=== PATIENT | female | born 1965 | race Caucasian/White ===

== ENCOUNTER 2017-04-30 09:45 | Day surgery (SDC) | payer BC ==
[~2017-04-30] VITALS: Ht 162.6 cm; Wt 76.1 kg
[2017-04-30] MEDS ORDERED: IBUPROFEN (11:12)
[2017-04-30] MEDS ORDERED: NEXIUM (11:12)
[2017-04-30] MEDS ORDERED: VITAMIN D (11:12)
[2017-04-30 11:30] VITALS: BP 121/61; PULSE 82; RESP 18
--- NOTE | 2017-04-30 12:04 | OPPN ---
Date/Time of Note Date/Time of Note DATE: 04/30/17 TIME: 12:03 Proc Note GI Procedure Date 04/30/17 Indication: screening/surveillance, diagnostic Pre-procedure Diagnosis Dysphagia Screening colonoscopy Post-procedure Diagnosis 1. Severe reflux esophagitis with a ring formation 2. Eosinophilic esophagitis 3. Gastritis : Colonoscopy completely normal External hemorrhoids Procedure Performed: Endoscopy, Colonoscopy Surgeon see signature line Building Performance Consultant none Anesthesia Type: moderate sedation Tourniquet Time none EBL none Transfusion required none Biopsy 1: Stomach biopsies 3 Grafts/Implants none Tubes/Drains none Complication(s) none Disposition: PACU Procedure Description Report dictated IRIS BARRETT MD Apr 30, 2017 12:04
[2017-04-30] MEDS ORDERED: MIDAZOLAM 1 MG/ML 2 ML INJ ONE ×4 (12:16→12:17)
[2017-04-30] MEDS ORDERED: FENTAnyl 50 MCG/ML VIAL ONE (12:16)
[2017-04-30 12:45] VITALS: BP 112/62; RESP 20
--- NOTE | 2017-04-30 14:01 | GILP ---
DATE OF PROCEDURE: PROCEDURE: EGD with biopsy and colonoscopy. INDICATION: A 52-year-old female undergoing this procedure for dysphagia and colon cancer screening . The risks of the procedure, related and unrelated complications, sedative risks, alternatives dis cussed and informed consent was obtained. DESCRIPTION OF PROCEDURE: The patient was sedated with Versed 6.5 mg, fentanyl 100 mg. After optima l sedation, scope was passed with much ease into esophagus. The patient had a multiple ring-like st ricture in the distal part of the esophagus with ulceration and also inflammatory polyp near the GE junction consistent with the diagnosis of severe esophagitis, most probably eosinophilic. Stomach m ucosa revealed gastritis. Multiple biopsies obtained to rule out H. pylori infection. Duodenum, fi rst and second part was within normal limits. Retroversion was normal. Scope was straightene d out. Brushing was done at the GE junction site with an inflammatory polyp. The brush was sent fo r cytological analysis. The mucosa was friable. Scope was then removed with good patient tolerance . IMPRESSION 1. Esophageal ulceration in the distal part of the esophagus with a ring-like structure. 2. Inflammatory polyp near the GE junction. Brushing was done. 3. Multiple ring-like structures were seen in the distal part of the esophagus, 15-20 in number, co nsistent with the diagnosis of eosinophilic esophagitis. 4. Gastritis. 5. Normal duodenum and ampulla. PLAN: To review histopathology. The patient is to stay on a proton pump inhibitor. In the beginnin g 40 mg twice a day, then we will drop it down to once a day. We will review the histopathology and cytology. COLONOSCOPY REPORT The patient was turned around. Digital examination was done which was normal. Scope was passed wit h much ease into rectum, advanced through sigmoid, descending, transverse colon all the way into cec um and finally into terminal ileum. While coming out, mucosa thoroughly inspected. The rest of the colon was normal. Retroversion done. Scope was straightened out. On antegrade examination hemorr hoids identified. IMPRESSION: 1. Normal findings all the way into cecum. 2. Normal terminal ileum. 3. Clarity and cleanliness was good. 4. Normal retroversion. 5. External hemorrhoids. PLAN: Stay on a high fiber diet. Next colonoscopy after 10 years. Dictated By: IRIS ARREDONDO/YESSICA Conf#: [id number] DID#: [id number] CC: BERENICE KHAN MD;*[facility]*
== END 2017-04-30 19:12 | disposition home or self-care (01) ==
LOC: GIL 09:45
PROVIDERS: ATTEND Internal Medicine Gastroenterology
DX: Z12.11 Encounter for screening for malignant neoplasm of colon (principal); K29.50 Unspecified chronic gastritis without bleeding; K22.10 Ulcer of esophagus without bleeding; K20.0 Eosinophilic esophagitis; K64.4 Residual hemorrhoidal skin tags
CPT/HCPCS: 43239; 88305; 88312; J2250; J3010; Z7610

== ENCOUNTER 2017-12-01 10:51 | Day surgery (SDC) | END 2017-12-01 15:39 | disposition home or self-care (01) ==

== ENCOUNTER 2018-12-09 07:22 | Day surgery (SDC) | payer BC ==
[~2018-12-09] VITALS: Ht 160 cm; Wt 76.2 kg
[2018-12-09] VITALS (22 sets, daily range): BP systolic 93–113; BP diastolic 56–73; PULSE 66–83; RESP 13–43; Ht 160 cm; Wt 76.2 kg
[~2018-12-09 07:22] MED LIST: OMEPRAZOLE
[2018-12-09] MEDS ORDERED: SOD CHLORIDE 0.45% 1,000 ML IV ONE (09:00)
[2018-12-09] MEDS ORDERED: FAMOTIDINE 20 MG TAB PO ONE (09:00)
[2018-12-09] MEDS ORDERED: DIAZEPAM 5 MG TAB PO ONE (09:00)
[2018-12-09] MEDS ORDERED: DIPHENHYDRAMINE 50 MG CAP PO ONE (09:00)
[2018-12-09] MEDS ORDERED: ATOR10TA65 PO (09:05)
[2018-12-09] MEDS ORDERED: ASPI81TA52 PO (09:05)
[2018-12-09] MEDS ORDERED: OMEP20CA16 PO (09:05)
[2018-12-09] MEDS ORDERED: NITR0.4T39 SL (09:06)
[2018-12-09] MEDS ORDERED: CALC1TAB79 PO (09:06)
[2018-12-09] MEDS ORDERED: HEPARIN 1000 UNITS/ML 10 ML INJ ONE (09:28)
[2018-12-09] MEDS ORDERED: HEPARIN 1000 UNITS/NS (A-LINE) 1,000 ML ONE (09:28)
[2018-12-09] MEDS ORDERED: FENTAnyl 50 MCG/ML VIAL ONE (09:28)
[2018-12-09] MEDS ORDERED: MIDAZOLAM 1 MG/ML 2 ML INJ ONE (09:28)
[2018-12-09] MEDS ORDERED: LIDOCAINE 1% (MDV) 20 ML INJ ONE (09:28)
[2018-12-09] MEDS ORDERED: IODIXANOL LOCM 100 ML BTL ONE (09:28)
[2018-12-09] MEDS ORDERED: VERAPAMIL 5 MG INJ ONE (09:29)
[2018-12-09] MEDS ORDERED: NITROGLYCERIN (IC) 100 MCG/ML INJ ONE (09:29)
[2018-12-09] MEDS ORDERED: SOD CHLORIDE 0.9% 1,000 ML IV SCH (10:30)
[2018-12-09] MEDS ORDERED: AL HYDROX/MG HYDROX/SIMETH 30 ML CUP PO PRN (10:30)
[2018-12-09] MEDS ORDERED: ONDANSETRON 4 MG INJ IV PRN (10:30)
[2018-12-09] MEDS ORDERED: ACETAMINOPHEN 325 MG TAB PO PRN (10:30)
[2018-12-09] MEDS ORDERED: morphine 2 MG INJ IV PRN (10:30)
--- NOTE | 2018-12-09 10:31 | SIPON ---
Date/Time of Note Date/Time of Note DATE: 12/09/18 TIME: 10:30 Operative Report Preoperative Diagnosis 1.abnl MPI 2.Preop Postoperative Diagnosis 1.non-obstruvctive cad Operation/Procedure Performed 1.[facility] Surgeon see signature line medical technician assistant 1.[place] Anesthesia: moderate sedation Estimated blood loss: minimal Transfusion Required none Specimen none Grafts/Implants none Complications none LOW WOOTEN Dec 09, 2018 10:31
--- NOTE | 2018-12-11 16:04 | RADRPT ---
Vent Rate: 61 bpm RR Interval: 976 msec [place] Interval: 153 msec QRS Duration: 104 msec QT Interval: 384 msec QTC Interval: 389 msec P-R-T [place]: 52 - 15 - 14 degrees Sinus rhythm...normal P axis, V-rate 50- 99 Electronically Signed By: Layo Loja
== END 2018-12-09 13:56 | disposition home or self-care (01) ==
LOC: SDS 07:22
PROVIDERS: ATTEND Internal Medicine
DX: I25.10 Atherosclerotic heart disease of native coronary artery without angina pectoris (principal); R94.39 Abnormal result of other cardiovascular function study; I10 Essential (primary) hypertension; E78.5 Hyperlipidemia, unspecified
CPT/HCPCS: 71045; 80048; 80061; 84703; 85025; 85610; 85730; 93005; 93458; C1887; J1644; J2250; J3010; Q9967; Z7610